=== PATIENT | female | born 1960 | race Caucasian/White ===

== ENCOUNTER → 2016-06-29 | Outpatient (CLI) | payer BC ==
[~2016-06-29] MED LIST: CLIN150C PO; OXYC-81 PO
== END | disposition home or self-care (01) ==
LOC: C.PAPS 15:42
PROVIDERS: ATTEND Obstetrics & Gynecology
DX: Z01.419 Encounter for gynecological examination (general) (routine) without abnormal findings (principal)

== ENCOUNTER 2016-10-19 09:58 | Emergency (ER) | payer BC ==
[~2016-10-19] VITALS: Ht 165.1 cm; Wt 83.0 kg
[2016-10-19 10:05] VITALS: Ht 165.1 cm; Wt 83.0 kg
[2016-10-19 11:04] LABS: BASO % 0.6 %; BASO ABS # 0.05 K/uL (0-0.2); COMPLETE YES; EOS % 1.9 %; HEMATOCRIT 46.1 % (37-47); IG% 0.3 %; LYMPH % 33.7 %; LYMPH ABS # 2.61 K/uL (1.2-3.4); MEAN CELL VOLUME 87.6 fL (80-100); MEAN CORPUSCULAR HEMOGLOBIN 27.4 pg (25-34); MEAN CORPUSCULAR HGB CONC 31.2 g/dl (32-36); MEAN PLATELET VOLUME 11.3 fL (7.4-10.4); MONO % 4.8 %; NEUT % 58.7 %; PLATELET COUNT 249 K/uL (130-400); RED BLOOD COUNT 5.26 M/uL (4.2-5.4); WHITE BLOOD COUNT 7.74 K/uL (4.8-10.8)
[2016-10-19 11:11] LABS: ALT/SGPT 96 U/L (12-78); BLOOD UREA NITROGEN 12 mg/dl (7-18); BUN/CREATININE RATIO 15.9 (10-20); CALCIUM 9.5 mg/dl (8.5-10.1); CARBON DIOXIDE 28 mmol/L (21-32); CHLORIDE 105 mmol/L (98-107); CREATININE 0.78 mg/dl (0.60-1.20); GLUCOSE 93 mg/dl (70-99); SODIUM 139 mmol/L (136-145)
[2016-10-19 11:16] LABS: ALKALINE PHOSPHATASE 113 U/L (45-117); AST/SGOT 52 U/L (15-37); CKMB/CK RATIO 1.3 (0-3.0)
[2016-10-19 11:19] LABS: PREG INTERNAL NEGATIVE QC NEG CLEAR BACKGROUND; PREG INTERNAL POSITIVE QC POS CONTROL LINE
[2016-10-19 11:24] VITALS: O2SAT 96
--- NOTE | 2016-10-19 11:24 | DIAGNOSTIC IMAGING REPORT ---
CHEST ONE VIEW PORTABLE CLINICAL HISTORY: Atypical chest pain COMPARISON STUDY: No previous studies for comparison. FINDINGS: The cardiac and mediastinal contours are normal. There is no evidence of focal pulmonary consolidation. There is no evidence of failure. No pleural effusions are visualized.[ IMPRESSION: No active disease in the chest. Electronically signed by: Dmitry Appiah M.D. 10/19/2016 11:22 AM Dictated Date/Time: 10/19/2016 11:20 AM
[2016-10-19 11:26] LABS: POINT OF CARE TROPONIN I < 0.030 ng/ml (0-0.045)
[2016-10-19 12:13] LABS: URINE APPEARANCE CLEAR (CLEAR); URINE BILIRUBIN NEG (NEG); URINE COLOR YELLOW; URINE EPITHELIAL CELL AUTO >30 /lpf (0-5); URINE NITRITE NEG (NEG); URINE SPECIFIC GRAVITY 1.015 (1.000-1.030); UROBILINOGEN NEG (NEG); ZZUR CULT IF INDIC CLEAN CATCH NO
[2016-10-19 12:17] LABS: MANUAL MICROSCOPIC REQUIRED? NO; REVIEW REQ? NO
--- NOTE | 2016-10-19 13:06 | EMERGENCY ROOM VISIT NOTE ---
History First contact with patient: 10:50 Chief Complaint: CHEST PAIN Stated Complaint: CHEST PAIN Nursing Triage Summary: CP in middle of chest, tightness, SOB, diaphoretic, throat pain like she couldnt swallow , 20 min ago. Was at regular check up with doctor. History of Present Illness The patient is a 55 year old female who presents to the Emergency Room with complaints of 8/10 substernal chest pain. The patient also notes the following associated symptoms, SOB and sweating. This started 0900, lasted 15min and is resolved. The patient has no relieving factors. She was in her PCP's office when this occurred. ECG showed some T wave flattening in III and AVL. She notes dental surgery last week. Has had similar episodes recently and they were not related to exertion. PCP referred to the ER. Pt denies LOC, headache , fevers, chills, visual changes, neck pain, nausea, vomiting, abdominal pain, back pain, melena, hematochezia, urinary symptoms, numbness, weakness, lymphadenopathy, rash, or other complaints. Source of History: patient Onset: 2 hours ago Position: chest Symptom Intensity: 8/10 Timing: resolved Review of Systems See HPI for pertinent positives and negatives. A total of ten systems were reviewed and were otherwise negative. Past Medical/Surgical History Medical Problems: (1) DCIS (ductal carcinoma in situ) (2) Pyelonephritis Family History No pertinent family history stated. Social History Smoking Status: Never Smoker Marital Status: Housing Status: lives with significant other Occupation Status: employed Current/Historical Medications No Active Prescriptions or Reported Meds Physical Exam Vital Signs Date Time Temp Pulse Resp B/P (MAP) Pulse Ox O2 Delivery O2 Flow Rate FiO2 10/19/16 15:40 93 16 122/90 97 10/19/16 13:37 73 10/19/16 13:26 78 20 149/95 97 Room Air 10/19/16 11:27 69 10/19/16 11:24 68 20 152/92 96 Room Air 10/19/16 11:24 96 Room Air 10/19/16 10:05 Room Air 10/19/16 10:05 76 16 160/96 98 Room Air Physical Exam GENERAL: Awake, alert, well-appearing, in no distress HENT: Normocephalic, atraumatic. Oropharynx unremarkable. EYES: Normal conjunctiva. Sclera non-icteric. NECK: Supple. No nuchal rigidity. FROM. No JVD. RESPIRATORY: Clear to auscultation. CARDIAC: Regular rate, normal rhythm. Extremities warm and well perfused. Pulses equal. ABDOMEN: Soft, non-distended. No tenderness to palpation. No rebound or guarding. No masses. RECTAL: Deferred. MUSCULOSKELETAL: Chest examination reveals no tenderness. The back is symmetrical on inspection without obvious abnormality. There is no CVA tenderness to palpation. No joint edema. LOWER EXTREMITIES: Calves are equal size bilaterally and non-tender. No edema. No discoloration. NEURO: Normal sensorium. No sensory or motor deficits noted. SKIN: No rash or jaundice noted. Medical Decision & Procedures ER Provider Diagnostic Interpretation: Radiology results as stated below per my review and radiologist interpretation: CHEST ONE VIEW PORTABLE FINDINGS: The cardiac and mediastinal contours are normal. There is no evidence of focal pulmonary consolidation. There is no evidence of failure. No pleural effusions are visualized.[ IMPRESSION: No active disease in the chest. Electronically signed by: Dmitry Appiah M.D. 10/19/2016 11:22 AM Dictated Date/Time: 10/19/2016 11:20 AM ABDOMINAL ULTRASOUND, RIGHT UPPER QUADRANT FINDINGS: Pancreas: The pancreas demonstrates a normal echotexture. Liver: The liver is echogenic consistent with fatty change. Gallbladder: No gallbladder wall thickening. No gallstones. CBD: 5 mm. Right kidney: No hydronephrosis. IMPRESSION: 1. Hepatic steatosis. 2. Normal gallbladder. No gallstones. Electronically signed by: Ryan Baxter M.D. 10/19/2016 1:26 PM Dictated Date/Time: 10/19/2016 1:25 PM Laboratory Results 10/19/16 10:40 Red Blood Count 5.26, Mean Corpuscular Volume 87.6, Mean Corpuscular Hemoglobin 27.4, Mean Corpuscular Hemoglobin Concent 31.2, Mean Platelet Volume 11.3, Neutrophils (%) (Auto) 58.7, Lymphocytes (%) (Auto) 33.7, Monocytes (%) (Auto) 4.8, Eosinophils (%) (Auto) 1.9, Basophils (%) (Auto) 0.6, Neutrophils # (Auto) 4.54, Lymphocytes # (Auto) 2.61, Monocytes # (Auto) 0.37, Eosinophils # (Auto) 0.15, Basophils # (Auto) 0.05 10/19/16 10:40 Test 10/19/16 10:40 10/19/16 11:06 10/19/16 11:50 10/19/16 13:24 White Blood Count 7.74 K/uL (4.8-10.8) Red Blood Count 5.26 M/uL (4.2-5.4) Hemoglobin 14.4 g/dL (12.0-16.0) Hematocrit 46.1 % (37-47) Mean Corpuscular Volume 87.6 fL (80-100) Mean Corpuscular Hemoglobin 27.4 pg (25-34) Mean Corpuscular Hemoglobin Concent 31.2 g/dl (32-36) Platelet Count 249 K/uL (130-400) Mean Platelet Volume 11.3 fL (7.4-10.4) Neutrophils (%) (Auto) 58.7 % Lymphocytes (%) (Auto) 33.7 % Monocytes (%) (Auto) 4.8 % Eosinophils (%) (Auto) 1.9 % Basophils (%) (Auto) 0.6 % Neutrophils # (Auto) 4.54 K/uL (1.4-6.5) Lymphocytes # (Auto) 2.61 K/uL (1.2-3.4) Monocytes # (Auto) 0.37 K/uL (0.11-0.59) Eosinophils # (Auto) 0.15 K/uL (0-0.5) Basophils # (Auto) 0.05 K/uL (0-0.2) RDW Standard Deviation 48.2 fL (36.4-46.3) RDW Coefficient of Variation 15.2 % (11.5-14.5) Immature Granulocyte % (Auto) 0.3 % Immature Granulocyte # (Auto) 0.02 K/uL (0.00-0.02) Anion Gap 6.0 mmol/L (3-11) Est Creatinine Clear Calc Drug Dose 88.8 ml/min Estimated GFR () 100.6 Estimated GFR (Non- 86.8 BUN/Creatinine Ratio 15.9 (10-20) Calcium Level 9.5 mg/dl (8.5-10.1) Total Bilirubin 0.3 mg/dl (0.2-1) Direct Bilirubin < 0.1 mg/dl (0-0.2) Aspartate Amino Transf (AST/SGOT) 52 U/L (15-37) Alanine Aminotransferase (ALT/SGPT) 96 U/L (12-78) Alkaline Phosphatase 113 U/L (45-117) Total Creatine Kinase 69 U/L (26-192) Creatine Kinase MB 0.9 ng/ml (0.5-3.6) Creatine Kinase MB Ratio 1.3 (0-3.0) Total Protein 8.3 gm/dl (6.4-8.2) Albumin 3.8 gm/dl (3.4-5.0) Lipase 227 U/L (73-393) Human Chorionic Gonadotropin, Qual NEG (NEG) Bedside D-Dimer 335 ng/mlFEU (0-450) Urine Color YELLOW Urine Appearance CLEAR (CLEAR) Urine pH 5.0 (4.5-7.5) Urine Specific [place] 1.015 (1.000-1.030) Urine Protein NEG (NEG) Urine Glucose (UA) NEG (NEG) Urine Ketones NEG (NEG) Urine Occult Blood NEG (NEG) Urine Nitrite NEG (NEG) Urine Bilirubin NEG (NEG) Urine Urobilinogen NEG (NEG) Urine Leukocyte Esterase MODERATE (NEG) Urine WBC (Auto) 5-10 /hpf (0-5) Urine RBC (Auto) 0-4 /hpf (0-4) Urine Hyaline Casts (Auto) 1-5 /lpf (0-5) Urine Epithelial Cells (Auto) >30 /lpf (0-5) Urine Bacteria (Auto) NEG (NEG) Bedside Troponin I < 0.030 ng/ml (0-0.045) Laboratory results reviewed by me ECG Indication: chest pain Rate (beats per minute): 73 Rhythm: normal sinus Findings: no acute ischemic change, no ectopy Change: EKG 2: Normal Sinus Rhythm, 64, No ischemia, No ectopy ED Course 1050: The patient was evaluated in room A4. A complete history and physical exam was performed. 1300: I spoke to Dr. Gee of Cardiology. He will do a stress test on the patient if her second troponin is negative. 1341: I reevaluated the patient and she is doing well. 1515: I reevaluated the patient. She is asymptomatic. 1545: I reevaluated the patient. Discussed results and discharge instructions: She verbalized understanding and agreement. The patient is ready for discharge. Medical Decision Triage Nursing notes reviewed. The patient's presentation and history were concerning for chest pain. Etiologies such as cardiac ischemia, aortic dissection, pulmonary embolism, pneumonia, pneumothorax, musculoskeletal, infections, gastrointestinal, as well as others were entertained. The patient was evaluated. She had unremarkable lab for studies. ECG was unremarkable. Repeat troponin was again negative. I discussed the case with Dr. Gee of cardiology. He will perform a stress test. He did perform the stress test and this was negative. The patient did have some mild hypertension. He recommended the patient maintain a log and follow up with her primary physician. The patient also had a slight elevation of her LFTs and prior to stress testing did have a gallbladder ultrasound. Color was unremarkable. She did have some mild hepatic steatosis. She was educated. The patient will need to follow up with her primary physician. If she is asymptomatic and has passed her stress test and diagnostic testing here she will follow-up as an outpatient. His usual By the evaluation outlined above other emergent etiologies such as those listed in the differential, as well as others, were deemed relatively unlikely. The patient was educated about the findings as listed above. All questions were answered and the patient was pleased with the treatment. Return instructions were outlined and the patient was discharged in stable condition. The patient was referred to Her PCP next week for follow-up for a recheck of the current condition. Medication Reconcilliation Current Medication List: was personally reviewed by me Blood Pressure Screening Patient's blood pressure: Elevated blood pressure Blood pressure disposition: Referred to PCP Consults Time Called: 1300 Consulting Physician: Dr. Gee - Cardiology Returned Call: [address] Gee of Cardiology. He will do a stress test on the patient if her second troponin is negative. Impression Primary Impression: Substernal chest pain Additional Impression: HTN (hypertension) Departure Information Dispostion Home / Self-Care Prescriptions No Active Prescriptions or Reported Meds Referrals Mary Govea DO (PCP) Forms Call Back Authorization, HOME CARE DOCUMENTATION FORM, IMPORTANT VISIT INFORMATION Patient Instructions [facility] Additional Instructions CHEST PAIN INSTRUCTIONS: Rest and drink plenty of fluids as tolerated. Continue current medications. Monitor blood pressure daily and record this for your family doctor. Avoid strenuous activities and anything that worsens your pain. Resume normal activities once your symptoms resolve. Return to the ER immediately for worsening or persistent chest pain, abdominal pain, vomiting, fevers, chest pains, difficulty breathing, worsening of your condition, or as needed. Follow up with your primary physician next week for a recheck of your current condition. Problem Qualifiers
--- NOTE | 2016-10-19 13:27 | DIAGNOSTIC IMAGING REPORT ---
ABDOMINAL ULTRASOUND, RIGHT UPPER QUADRANT HISTORY: substernal chest pain, elevated LFTs. COMPARISON: None. FINDINGS: Pancreas: The pancreas demonstrates a normal echotexture. Liver: The liver is echogenic consistent with fatty change. Gallbladder: No gallbladder wall thickening. No gallstones. CBD: 5 mm. Right kidney: No hydronephrosis. IMPRESSION: 1. Hepatic steatosis. 2. Normal gallbladder. No gallstones. Electronically signed by: Ryan Baxter M.D. 10/19/2016 1:26 PM Dictated Date/Time: 10/19/2016 1:25 PM
[2016-10-19 15:40] VITALS: BP 122/90; PULSE 93; O2SAT 97
--- NOTE | 2016-10-19 16:06 | DOBUTAMINE ECHO ---
*NOTICE TO RECEIVING [employer] This information is strictly Confidential and protected under [place] law. [place] law prohibits you from making any further disclosure of this information unless further disclosure is expressly permitted by the written consent of the person to whom it pertains or is authorized by law. A general authorization for the release of medical or other information is not sufficient for this purpose. Hospital accepts no responsibility if the information is made available to any other person, INCLUDING THE PATIENT. Interpretation Summary * Name: URIAH PARRY V Study Date: 10/19/2016 02:05 PM BP: 149/95 mmHg * Patient Location: [facility] HR: 72 * : 1960 (M/d/yyyy) Gender: Female Height: 65 in * Age: 55 yrs Ethnicity: [place] Weight: 182 lb * Ordering Physician: Mitch Camp * Performed By: Boni Padgett RCS * * Reason For Study: Chest pain * BSA: 1.9 m2 * -- Conclusions -- * Nonischemic exercise stress echocardiogram. * No arrhythmias. * Hypertensive BP response to exercise. * Below average exercise tolerance. * At rest, normal LV chamber size and wall thickness. * Normal LV systolic function, EF 60-65%. * No segmental left ventricular wall motion abnormalities are noted. * Grade I diastolic dysfunction. * No significant valvular pathology. Procedure Details * Left Ventricle The left ventricle is normal in size. There is normal left ventricular wall thickness. Ejection Fraction = 60-65%. Left ventricular systolic function is normal. No segmental left ventricular wall motion abnormalities are noted. Resting wall motion: Normal. Stress wall motion: Appropriate increase in Left ventricular systolic function and decrease in cavity size. No stress induced segmental wall motion abnormalities. * Right Ventricle The right ventricular cavity size is normal (basal dimension <4.2 cm in right ventricular apical 4-chamber view). The right ventricular systolic function is normal as assessed by tricuspid annular plane systolic excursion (TAPSE) (normal >1.5 cm). * Atria The left atrial size is normal. Right atrial size is normal. * Mitral Valve The mitral valve is normal in structure and function. * Tricuspid Valve The tricuspid valve is normal in structure and function. * Aortic Valve The aortic valve is not well visualized. No hemodynamically significant valvular aortic stenosis. There is no significant aortic regurgitation. * Pulmonic Valve The pulmonary valve is not well seen, but the Doppler examination is normal without significant regurgitation or stenosis. * Great Vessels The aortic root is normal size. * Pericardium There is no pericardial effusion. * Stress Parameters Normal baseline electrocardiogram. No arrhythmia were noted with stress. There was no new ST segment depression. The stress portion of this study was personally supervised by the undersigned interpreting physician. Rest heart rate was '90' BPM. Rest blood pressure was '149/95' Maximum heart rate achieved was 167 bpm. Maximum heart rate was 98 % of maximum age-predicted heart rate. Maximum blood pressure was '205/95' Total exercise time was '07:01' Maximum exercise MET level achieved was '8.5' METS Maximum treadmill speed was '3.4' miles per hour. Maximum treadmill elevation was '14'% grade. * Left Ventricular Diastolic Function Grade I diastolic dysfunction, (abnormal relaxation pattern). * * MMode 2D Measurements and Calculations * IVSd 0.93 cm * * LVIDd 4.0 cm * LVIDs 2.5 cm * LVPWd 0.92 cm * * IVS/LVPW 1.0 * FS 38.0 % * EDV(Teich) 70.1 ml * ESV(Teich) 21.9 ml * EF(Teich) 68.8 % * * EDV(cubed) 64.1 ml * ESV(cubed) 15.2 ml * EF(cubed) 76.2 % * * LV mass(C)d 113.9 grams * LV mass(C)dI 59.9 grams/m\S\2 * * SV(Teich) 48.2 ml * SI(Teich) 25.4 ml/m\S\2 * SV(cubed) 48.8 ml * SI(cubed) 25.7 ml/m\S\2 * * Ao root diam 2.8 cm * Ao root area 5.9 cm\S\2 * * LVOT diam 1.9 cm * LVOT area 2.9 cm\S\2 * * LVAd ap4 24.1 cm\S\2 * LVLd ap4 7.9 cm * EDV(MOD-sp4) 60.3 ml * EDV(sp4-el) 62.4 ml * LVAs ap4 11.1 cm\S\2 * LVLs ap4 6.2 cm * ESV(MOD-sp4) 16.9 ml * ESV(sp4-el) 16.9 ml * EF(MOD-sp4) 71.9 % * EF(sp4-el) 73.0 % * * LVAd ap2 30.6 cm\S\2 * LVLd ap2 8.5 cm * EDV(MOD-sp2) 89.3 ml * EDV(sp2-el) 93.6 ml * LVAs ap2 14.5 cm\S\2 * LVLs ap2 6.3 cm * ESV(MOD-sp2) 28.4 ml * ESV(sp2-el) 28.6 ml * EF(MOD-sp2) 68.2 % * EF(sp2-el) 69.5 % * * LVLd %diff 6.7 % * EDV(MOD-bp) 76.6 ml * LVLs %diff 1.6 % * ESV(MOD-bp) 22.0 ml * EF(MOD-bp) 71.3 % * * SV(MOD-sp4) 43.3 ml * SI(MOD-sp4) 22.8 ml/m\S\2 * * SV(MOD-sp2) 60.9 ml * SI(MOD-sp2) 32.0 ml/m\S\2 * * SV(MOD-bp) 54.6 ml * SI(MOD-bp) 28.7 ml/m\S\2 * * SV(sp4-el) 45.5 ml * SI(sp4-el) 24.0 ml/m\S\2 * * SV(sp2-el) 65.0 ml * SI(sp2-el) 34.2 ml/m\S\2 * * * Doppler Measurements and Calculations * MV E max nakia 73.4 cm/sec * MV A max nakia 78.4 cm/sec * * MV E/A 0.94 * * MV dec time 0.20 sec * * Ao V2 max 118.2 cm/sec * Ao max PG 5.6 mmHg * Ao max PG (full) 1.0 mmHg * SHAYNE(V,A) 2.6 cm\S\2 * SHAYNE(V,D) 2.6 cm\S\2 * * LV V1 max PG 4.6 mmHg * * LV V1 max 107.0 cm/sec * * TR max nakia 225.2 cm/sec * * *
== END 2016-10-19 15:48 | disposition home or self-care (01) ==
LOC: C.EDB 10:01 → C.EDA 15:48
DX: R07.2 Precordial pain (principal); I10 Essential (primary) hypertension; N12 Tubulo-interstitial nephritis, not specified as acute or chronic